=== PATIENT | male | born 1960 | race American Indian/Alaskan Native ===

== ENCOUNTER 2017-06-21 11:55 | Outpatient (CLI) | payer MEDICARE ==
--- NOTE | 2017-06-21 12:44 | XRay Report ---
CHEST TWO VIEWS: 06/21/17 11:55:00 CLINICAL: Hypoxemia. COMPARISON: None FINDINGS: Borderline mild cardiomegaly and large central pulmonary vessels with redistribution of pulmonary blood flow to the upper lobes. The lungs are normally expanded and clear. A right [id number]-[id number] tip is in the SVC. Mild calcification of the thoracic aorta. A few bilateral calcified hilar lymph nodes.The bones and soft tissues are normal. IMPRESSION: Mild cardiomegaly and pulmonary venous hypertension. No pulmonary edema.No pneumonia. Old granulomatous disease.
== END 2017-06-21 11:56 | disposition home or self-care (01) ==
LOC: SPVIMAG 11:55
PROVIDERS: ATTEND Internal Medicine
DX: I51.7 Cardiomegaly (principal); R09.02 Hypoxemia; I70.0 Atherosclerosis of aorta
CPT/HCPCS: 71046

== ENCOUNTER 2017-09-09 13:01 | Outpatient (CLI) | payer MEDICARE ==
--- NOTE | 2017-09-09 14:07 | Mammography Report ---
BONE DEXA:09/09/17 13:01:00 CLINICAL: Postmenopausal. COMPARISON: 08/16/15 TECHNIQUE: Two site bone DEXA performed on an Hologic scanner. FINDINGS: The average BMD of the lumbar spine L1-L4 is 0.827g/cm squared with a T-score of -3.4 and a Z-score of -2.7. This compares to 0.811g/cm squared on the last exam and represents a +2.0% change from the previous baseline. The average BMD of the left hip is 0.817g/cm squared with a T-score of -2.1 and a Z-score of -1.3. This compares to 0.816g/cm squared on the last exam and represents a 0.2% change from the previous baseline. The left femoral neck BMD is 0.631g/cm squared with T score of -2.8 and a Z score of -1.7 IMPRESSION: 1. WHO classification: Osteoporosis with high fracture risk based on spine and left femoral neck measurements. 2. A modest improvement in both spine and left hip BMD compared to the prior exam.. RECOMMENDATION: Clinical correlation and routine screening. DEFINITIONS: BMD = Bone Mineral Density T-score = BMD related to mean peak bone mass of young adult (mean expressed in Standard Deviation) Z-score = Age matched BMD expressed in SD World Health Organization (WHO) Diagnostic Criteria Normal T-score > -1 SD Osteopenia T-score between -1 and -2.4 SD Osteoporosis T-score -2.5 SD or below NOTE: BMD is not the only risk factor for fracture; also consider factors such as the patient's age, risk of falling, previous osteoporotic fracture, family history of osteoporotic fractures, current smoker, and low body weight. Z-scores are not calculated if >80 years of age.
== END 2017-09-09 13:02 | disposition home or self-care (01) ==
LOC: SPVWC 13:01
PROVIDERS: ATTEND Internal Medicine Hematology & Oncology
DX: M81.0 Age-related osteoporosis without current pathological fracture (principal)
CPT/HCPCS: 77080

== ENCOUNTER 2021-10-04 11:15 | Outpatient (CLI) | payer MEDICARE ==
--- NOTE | 2021-10-04 13:38 | Mammography Report ---
DEXA BONE DENSITY SCAN INDICATION / CLINICAL INFORMATION: M81.0 AGE RELATED OSTEOPOROSIS. 61 years Male COMPARISON: 09/16/2019 LUMBAR SPINE, L1-L4: - Bone mineral density (BMD) = 0.878 g/cm2. - T-score = -2.9 - Change (%) since most recent prior (if available): +2.9 LEFT HIP, NECK : - Bone mineral density (BMD) = 0.649 g/cm2. - T-score = -2.7 - Change (%) since most recent prior (if available): -2.6 IMPRESSION: 1. WHO Classification: Osteoporosis. Fracture Risk: High. 2. 10-Year Fracture Risk (FRAX) = Major Osteoporotic Not reported.% / Hip: Not reported.% FRAX generally not reported for patients with normal or osteoporotic BMD, in sbb-mecblft-ajxbxem nicol ents younger than age 50, or in patients undergoing pharmacotherapy BMD Reporting Guidelines (ISCD, 2015) BMD Reporting in Postmenopausal Women and in Men Age 50 and Older - T-scores are preferred. - The WHO densitometric classification is applicable. BMD Reporting in Females Prior to Menopause and in Males Younger Than Age 50 - Z-scores, not T-scores, are preferred. This is particularly important in children. - A Z-score of -2.0 or lower is defined as below the expected range for age, and a Z-score above -2.0 is within the expected range for age. - Osteoporosis cannot be diagnosed in men under age 50 on the basis of BMD alone. - The WHO diagnostic criteria may be applied to women in the menopausal transition. http://www.iscd.org/official-positions/9443-rfxw-fwryhyxn-positions-adult/ Signer Name: Iglesia Smith MD Signed: 10/04/2021 1:33 PM Workstation Name: [id number] [facility]
== END 2021-10-04 11:16 | disposition home or self-care (01) ==
LOC: SPVWC 11:15
PROVIDERS: ATTEND Internal Medicine Hematology & Oncology
DX: M81.0 Age-related osteoporosis without current pathological fracture (principal)
CPT/HCPCS: 77080